=== PATIENT | female | born 1950 | race Caucasian/White ===

== ENCOUNTER 2025-01-17 10:30 | Emergency (ER) | payer MEDICARE, SELFPAY ==
[2025-01-17 10:31] VITALS: BP 147/70; PULSE 106; RESP 16; TEMP 36.2; O2SAT 99
[2025-01-17 13:46] VITALS: BP 124/82; PULSE 105; RESP 15; O2SAT 98
[2025-01-17 13:55] LABS: Basophils Absolute Auto 0.1 K/mm3 (0.0-0.1); Basophils Percent Auto 0.6 % (0.2-1.2); Eosinophils Percent Auto 0.1 % (0-4.4); Hematocrit 40.5 % (37.0-47.0); Hemoglobin 13.3 g/dL (12.0-15.0); Immature Granulocyte Percent A 0.8 % (0-0.5); Lymphocytes Percent Auto 13.6 % (18.3-44.2); Mean Corpuscular HGB Conc 32.8 g/dl (32-36); Mean Corpuscular Hemoglobin 27.7 pg (26-34); Mean Corpuscular Volume 84.2 fl (80-100); Mean Platelet Volume 9.8 fl (7.4-10.4); Monocytes Absolute Auto 1.1 K/mm3 (0.1-0.6); Monocytes Percent Auto 8.7 % (2.6-8.5); Neutrophils Absolute Auto 9.5 K/mm3 (1.3-6.7); Neutrophils Percent Auto 76.2 % (45.5-73.1); Platelet Count Result 315 k/mm3 (150-375); Red Blood Count 4.81 M/mm3 (4.2-5.4); Red Cell Distribution Width 13.3 % (11.5-14.5); White Blood Count 12.5 K/mm3 (4.5-10.0)
[2025-01-17 14:06] LABS: Alanine Aminotransferase 25 U/L (6-35); Albumin Level 3.2 g/dL (3.5-5.1); Alkaline Phosphatase 85 U/L (38-126); Anion Gap 13 mmol/L (4-12); Aspartate Amino Transferase 25 U/L (14-36); Bilirubin,Total 0.8 mg/dL (0.2-1.3); Blood Urea Nitrogen 16 mg/dL (7-17); Calcium 8.9 mg/dL (8.4-10.2); Carbon Dioxide 16 mmol/L (22-30); Chloride 110 mmol/L (98-107); Estimated CRCL calculation 66 ml/min; Estimated Glomerular Filt Rate > 60; Glucose 157 mg/dL (65-110); Lipase 60 U/L (23-300); Potassium 3.7 mmol/L (3.4-5.0); Sodium 139 mmol/L (137-145)
[2025-01-17] MEDS: PROMETHAZINE HCL 25 MG/ML AMPUL 12.5 MG IV PUSH (14:38)
[2025-01-17] MEDS: SODIUM CHLORIDE 0.9% IV 50 ML 100 ML (14:40)
--- NOTE | 2025-01-17 15:50 | ED.GENADULT ---
HPI - General Adult General Chief complaint: Nausea/Vomiting/Diarrhea Stated complaint: N/V/D Time Seen by Provider: 01/17/25 13:51 History of Present Illness HPI narrative: Patient is a 74-year-old female who presents the ER with nausea and vomiting. Ongoing for 1 week. Intermittent diarrhea. Vomiting occurs when eating but also when choking on postnasal drip that causes her to cough and gag and vomit. No blood in stool or emesis. No improvement was Zofran. Related Data Home Medications ?Medication ?Instructions ?Recorded ?Confirmed ?Last Taken ?Type aspirin 81 mg tablet,delayed 81 mg PO DAILY 01/07/20 09/16/20 Unknown History release (Adult Aspirin Regimen) atorvastatin 40 mg tablet See Rx Instructions .Route .COMPLEX 01/07/20 09/16/20 Unknown History flu vacc [id number](65yr up)PF 180 ml IM 01/07/20 09/16/20 Unknown History mcg/0.5 mL intramuscular syringe multivitamin 1 tablet PO DAILY 01/07/20 09/16/20 Unknown History omeprazole 10 mg capsule,delayed 10 mg PO DAILY 01/07/20 09/16/20 Unknown History release potassium chloride 20 mEq 20 meq PO DAILY 01/07/20 09/16/20 Unknown History tablet,extended release vitamins A,C,[id number] 4,296 1 cap PO BID 01/07/20 09/16/20 Unknown History mcg-226 mg-90 mg capsule (PreserVision AREDS) acetaminophen 650 mg 650 mg PO TID 09/16/20 09/16/20 Unknown History tablet,extended release blood sugar diagnostic (Freestyle #10 ea 09/16/20 09/16/20 Unknown History In[employer] Test Strips) empagliflozin 10 mg tablet 10 mg PO DAILY 09/16/20 09/16/20 Unknown History metformin 500 mg tablet,extended 1,000 mg PO BID 09/16/20 09/16/20 Unknown History release 24 hr Allergies Allergy/AdvReac Type Severity Reaction Status Date / Time acetaminophen (From [facility] AdvReac Unknown Unknown Verified 01/17/25 14:37 (acetaminophen)) meloxicam AdvReac Unknown Unknown Verified 01/17/25 14:37 propoxyphene AdvReac Unknown Unknown Verified 01/17/25 14:37 Review of Systems Review of Systems: All systems reviewed & are unremarkable except as noted in HPI and below Constitutional: Constitutional: Reports no additional constitutional complaints Cardiovascular: Cardiovascular: Reports no additional cardiovascular complaints Respiratory: Respiratory: Reports no additional respiratory complaints Gastrointestinal: Gastrointestinal: Reports no additional gastrointestinal complaints [facility] Past Medical History Medical History (Updated 01/17/25 @ 16:56 by Hoang Chou MD) Pedal edema Osteoarthritis Essential (primary) hypertension Dyslipidemia Degenerative arthritis of knee, bilateral BMI 36.0-36.9,adult Low back pain with right-sided sciatica Class 2 severe obesity with serious comorbidity and body mass index (BMI) of 36.0 to 36.9 in adult Chronic gastroesophageal reflux disease (~2017) PUD (peptic ulcer disease) (~2017) d/t meloxicam: NO GI bleed; h/o hospitalization x 3 d FH: heart attack (~2002) Father @ 83: h/o HTN, hyperlipidemia FH: ovarian cancer in first degree relative (~2002) Mother dx'd @ 65-- @ 67: surgical complications Surgical History Surgical History (Updated 09/16/20 @ 16:32 by Scarlet Gonzalez MD) History of endometrial ablation 1994 History of lumpectomy of both breasts 1992 - right 1994 - left H/O excision of ganglion cyst 1973 - left wrist History of umbilical hernia repair 2003 History of cholecystectomy 2004 H/O lithotripsy (~2006) 2007 Family History Family History Father , @ 83 (2002) Acute myocardial infarction Heart disease Hypertension Mother Epithelial ovarian cancer, FIGO stage IIIB Diabetes mellitus Sibling Brain malignant neoplasm Social History Social History Smoking status: Never smoker Second hand tobacco smoke exposure: No Alcohol intake: never Substance use: never Living arrangements: alone Occupation/Education: retired Additional occupation/education comments: 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 HEAD: Normocephalic, atraumatic. ENT: Mucous membranes moist. CHEST: Clear to auscultation. No respiratory distress. HEART: Regular rate and rhythm. Normal peripheral pulses. ABDOMEN: Soft, nontender, nondistended. EXTREMITIES: Normal range of motion. No edema. SKIN: Warm, dry, no rash. NEURO: Alert and oriented x3. PSYCH: Normal mood and affect. Course Course Emergency Course: Patient resting comfortably. Received Phenergan. Labs unremarkable. No obstruction. Likely enteritis. Urinalysis shows possible infection so she will be treated with antibiotics. Discharge with Phenergan for home. Vital Signs Vital signs: Vital Signs Temperature 97.2 F L 01/17/25 10:31 Pulse Rate 106 H 01/17/25 10:31 Respiratory Rate 16 01/17/25 10:31 Blood Pressure 147/70 H 01/17/25 10:31 Pulse Oximetry 99 01/17/25 10:31 Oxygen Delivery Room Air 01/17/25 10:31 Temperature 97.2 F L 01/17/25 10:31 Pulse Rate 111 H 01/17/25 16:00 Respiratory Rate 20 01/17/25 16:00 Blood Pressure 156/93 H 01/17/25 16:00 Pulse Oximetry 99 01/17/25 16:00 Oxygen Delivery Room Air 01/17/25 10:31 Medical Decision Making Vital Signs Vital Signs: Vital Signs Temperature 97.2 F L 01/17/25 10:31 Pulse Rate 106 H 01/17/25 10:31 Respiratory Rate 16 01/17/25 10:31 Blood Pressure 147/70 H 01/17/25 10:31 Pulse Oximetry 99 01/17/25 10:31 Oxygen Delivery Room Air 01/17/25 10:31 Temperature 97.2 F L 01/17/25 10:31 Pulse Rate 111 H 01/17/25 16:00 Respiratory Rate 20 01/17/25 16:00 Blood Pressure 156/93 H 01/17/25 16:00 Pulse Oximetry 99 01/17/25 16:00 Oxygen Delivery Room Air 01/17/25 10:31 Lab Data 01/17/25 13:49 01/17/25 13:49 Labs: Lab Results 01/17/25 01/17/25 Range/Units 13:49 15:40 WBC 12.5 H (4.5-10.0) K/mm3 RBC 4.81 (4.2-5.4) M/mm3 Hgb 13.3 (12.0-15.0) g/dL Hct 40.5 (37.0-47.0) % MCV 84.2 (80-100) fl MCH 27.7 (26-34) pg MCHC 32.8 (32-36) g/dl RDW 13.3 (11.5-14.5) % Plt Count 315 (150-375) k/mm3 MPV 9.8 (7.4-10.4) fl Immature Gran % (Auto) 0.8 H (0-0.5) % Neut % (Auto) 76.2 H (45.5-73.1) % Lymph % (Auto) 13.6 L (18.3-44.2) % [place] % (Auto) 8.7 H (2.6-8.5) % Eos % (Auto) 0.1 (0-4.4) % Baso % (Auto) 0.6 (0.2-1.2) % Lymph # (Auto) 1.70 (0.9-3.2) K/mm3 [place]y # (Auto) 1.1 H (0.1-0.6) K/mm3 Eos # (Auto) 0.0 (0-0.3) K/mm3 Baso # (Auto) 0.1 (0.0-0.1) K/mm3 Abs Immat Gran (auto) 0.10 H (0.00-0.031) K/mm3 Absolute Neuts (auto) 9.5 H (1.3-6.7) K/mm3 Absolute Nucleated RBC 0.000 (0.0-0.012) K/mm3 Nucleated RBC % 0.0 (0.0-0.2) % Sodium 139 (137-145) mmol/L Potassium 3.7 (3.4-5.0) mmol/L Chloride 110 H (98-107) mmol/L Carbon Dioxide 16 L (22-30) mmol/L Anion Gap 13 H (4-12) mmol/L BUN 16 (7-17) mg/dL Creatinine 0.63 L (0.7-1.0) mg/dL Estim Creat Clear Calc 66 ml/min Estimated GFR > 60 (59 - ) Glucose 157 H (65-110) mg/dL Calcium 8.9 (8.4-10.2) mg/dL Total Bilirubin 0.8 (0.2-1.3) mg/dL AST 25 (14-36) U/L ALT 25 (6-35) U/L Alkaline Phosphatase 85 (38-126) U/L Total Protein 6.0 L (6.3-8.2) g/dL Albumin 3.2 L (3.5-5.1) g/dL Lipase 60 (23-300) U/L Urine Color Yellow (Yellow) Urine Appearance Clear (Clear) Urine pH 5.5 (5.0-9.0) Ur Specific [place] > 1.045 H (1.001-1.035) Urine Protein 1+ H (Negative) mg/dL Urine Glucose (UA) Negative (Negative) mg/dL Urine Ketones 1+ H (Negative) mg/dL Ur Blood (Man) Trace (Negative) Urine Nitrate Negative (Negative) Urine Bilirubin Negative (Negative) Urine Urobilinogen 1.0 (<2.0) mg/dL Add Ur Microanalysis Reviewed Leukocyte Esterase Rfl Negative (Negative) FABIOLA/UL Urine RBC 6-10 H (0-2) /hpf Urine WBC 11-20 H (0-3) /hpf Ur Squamous Epith Cells Few (Few) /hpf Urine Bacteria 1+ H /hpf Urine Casts 0-2 Imaging Data Radiologist's impression: ITS Impressions Abdomen/Pelvis CT 01/17/25 14:49 IMPRESSION: 1. Multiple stones in the right renal pelvis with mild hydronephrotic changes. Possibility of infectious changes around the pelvis cannot be excluded. 2. Stones in the right kidney upper and lower poles. 3. Left renal cyst. 4. Thickening of the wall of the second, and third parts of the duodenum with thickening of the wall of the proximal jejunum suggestive of duodenitis and enteritis. Clinical correlation advised. Discharge Plan Discharge Clinical Impression: Enteritis, Acute UTI Patient Disposition: Home, Self-Care Condition: Stable Instructions: Urinary Tract Infection in Women (ED), Gastroenteritis (ED) Additional Instructions: Please drink plenty of fluids at home. Return to the emergency department if you develop high fevers, have persistent severe abdominal pain, or have bloody stools or vomit, as these could be signs of a more serious medical emergency. Return to the emergency department if you are unable to keep down liquids because of severe nausea/vomiting. Patient Language: Gibraltarian Prescriptions: New cephalexin 500 mg capsule 500 mg PO Q12H Qty: 10 0RF promethazine 25 mg tablet 25 mg PO Q6H PRN (Reason: nausea and vomiting) Qty: 10 0RF simethicone 125 mg capsule 125 mg PO QID Qty: 20 0RF Rx Instructions: administer after meals and at bedtime No Action aspirin [Adult Aspirin Regimen] 81 mg tablet,delayed release (DR/EC) 81 mg PO DAILY atorvastatin 40 mg tablet See Rx Instructions .ROUTE .COMPLEX Rx Instructions: take 1/2 tab po qd; multivitamin Tablet 1 tablet PO DAILY PreserVision AREDS [id number] capsule 1 cap PO BID omeprazole 10 mg capsule,delayed release(DR/EC) 10 mg PO DAILY potassium chloride 20 mEq tablet extended release 20 meq PO DAILY Fluzone High-Dose 2019-20 (PF) 180 mcg/0.5 mL syringe IM glimepiride 4 mg tablet 4 mg PO BID Qty: 180 1RF lisinopril 10 mg tablet 10 mg PO DAILY Qty: 90 1RF furosemide 20 mg tablet 20 mg PO QAM PRN (Reason: edema) Qty: 90 1RF (DME) Freestyle [employer] Test Strips Strip See Rx Instructions .ROUTE .MEDSUPPLY Qty: 10 Rx Instructions: As directed empagliflozin 10 mg tablet 10 mg PO DAILY metformin 500 mg tablet extended release 24 hr 1,000 mg PO BID acetaminophen 650 mg tablet extended release 650 mg PO TID metoprolol succinate 25 mg tablet extended release 24 hr 25 mg PO DAILY Qty: 90 0RF Tradjenta 5 mg tablet 5 mg PO QAM Qty: 90 1RF tramadol 50 mg tablet 50 mg PO BID PRN (Reason: pain) Qty: 60 0RF Rx Instructions: needs follow-up for further refills Follow-up/Referrals: Kaz,Rudolph Montejo MD [Primary Care Provider] -
[2025-01-17 16:00] VITALS: BP 156/93; PULSE 111; RESP 20; O2SAT 99
[2025-01-17 16:10] LABS: Add Urine Microscopic? YES; Appearance Urine Clear (Clear); Bacteria Urine 1+ /hpf; Bilirubin Urine Negative (Negative); Blood Urine Trace (Negative); Color Urine Yellow (Yellow); Glucose Urine UA Negative (Negative); Ketones Urine 1+ mg/dL (Negative); Leukocyte Esterase Ur Negative LEU/UL (Negative); Need Manual Microscopic Reviewed; Nitrate Urine Negative (Negative); Non Pathogenic Casts 0-2; Protein Urine 1+ mg/dL (Negative); Specific Grav Ur > 1.045 (1.001-1.035); Squamous Epithelial Cell Urine Few /hpf (Few); pH Urine 5.5 (5.0-9.0)
== END 2025-01-17 17:13 | disposition home or self-care (01) ==
PROVIDERS: Emergency Medicine; Emergency Provider Emergency Medicine; PCP Internal Medicine
DX: K52.9 Noninfective gastroenteritis and colitis, unspecified (principal); N39.0 Urinary tract infection, site not specified; I10 Essential (primary) hypertension; E78.5 Hyperlipidemia, unspecified; E66.01 Morbid (severe) obesity due to excess calories; Z68.30 Body mass index [BMI] 30.0-30.9, adult; M17.0 Bilateral primary osteoarthritis of knee; K21.9 Gastro-esophageal reflux disease without esophagitis; Z87.11 Personal history of peptic ulcer disease; Z90.49 Acquired absence of other specified parts of digestive tract; Z79.82 Long term (current) use of aspirin; Z79.899 Other long term (current) drug therapy; Z79.84 Long term (current) use of oral hypoglycemic drugs; Z79.85 Long-term (current) use of injectable non-insulin antidiabetic drugs; N20.0 Calculus of kidney; N28.1 Cyst of kidney, acquired
CPT/HCPCS: 36415; 74177; 80053; 81001; 83690; 85025; 87086; 96374; 99284; J2550; Q9967